=== PATIENT | male | born 1990 | race Caucasian/White ===

== ENCOUNTER 2021-06-26 14:04 | Emergency (ER) | payer BC, SELFPAY ==
--- NOTE | ~2021-06-26 | XR_ITS ---
EXAMINATION: XR shoulder RT min 2V DATE: 06/26/2021 14:21 INDICATION: Right upper arm pain. TECHNIQUE: 3 views of right shoulder were obtained. COMPARISON: None. FINDINGS: There is a transverse fracture of mid shaft of right humerus. The distal fracture fragment demonstrates 16 degrees posterior angulation. Joint spaces are normal. IMPRESSION: 1. Transverse fracture of midshaft of right humerus. Reviewed, dictated and finalized at location A. IREMENTS ENGINEER
--- NOTE | ~2021-06-26 | XR_ITS ---
EXAMINATION: XR humerus RT DATE: 06/26/2021 14:21 INDICATION: Right upper arm pain. TECHNIQUE: 2 views of right humerus on 3 radiographs were obtained. COMPARISON: None. FINDINGS: There is a transverse fracture of midshaft of right humerus. The distal fracture fragment d emonstrates 16 degrees posterior angulation. The glenohumeral joint is not well profiled. Acromioclav icular joint is normal. IMPRESSION: 1. Transverse fracture of mid shaft of right humerus. Reviewed, dictated and finalized at location A. ORY SUPERVISOR
[2021-06-26 14:00] VITALS: BP 126/87; PULSE 100; RESP 17; TEMP 36.4; O2SAT 99
--- NOTE | 2021-06-26 14:08 | PC.NURSE ---
pt asked if pain medication required, pt denied need multiple times. stated that he would, wait and ask for when needed.
--- NOTE | 2021-06-26 15:22 | ED.UPPEXIN ---
HPI - Extremity Injury (Upper) General Chief Complaint: Extremity Injury, Upper Stated Complaint: right arm injury Source: patient Mode of arrival: ambulatory Limitations: no limitations History of Present Illness HPI narrative: Patient was hiking, slipped on ice landed on the right upper extremity. Denies other injuries. Prior to arrival. Related Data Allergies Allergy/AdvReac Type Severity Reaction Status Date / Time No Known Allergies Allergy Verified 06/26/21 14:04 Review of Systems Review of Systems: CONSTITUTIONAL: Denies fever, chills, or sweats. EYES: Denies visual changes, redness, or discharge. ENT: Denies rhinorrhea, congestion, sore throat, or otalgia. CARDIOVASCULAR: Denies chest pain, palpitations, or edema. RESPIRATORY: Denies cough or dyspnea. GASTROINTESTINAL: Denies abdominal pain, nausea, vomiting, or diarrhea. GENITOURINARY: Denies dysuria or hematuria. SKIN: Denies rash or itching. MUSCULOSKELETAL: Denies back pain, joint pain, or myalgia. NEUROLOGIC: Denies headache, numbness, or weakness. PSYCHIATRIC: Denies anxiety or depression. [facility] Family History Family History Father Family history of cardiomyopathy Social History Social History Smoking status: Never smoker Alcohol intake: current Exam Narrative: General appearance: Well-developed, well-nourished Skin: Normal color Head: Normocephalic, nontraumatic Eyes: Clear conjunctiva ENT: Oropharynx normal, ears normal, nose normal Neck: Supple, nontender Chest and respiratory: Airway patent, no respiratory distress, no accessory muscle use Heart: Regular rate/rhythm Abdomen: Soft, nontender, no organomegaly, quiet bowel sounds Vascular: Normal peripheral pulses, normal capillary refill. Musculoskeletal: Right arm showed diffuse swelling, diffuse tenderness, slight deformity, neurovascularly intact Neurologic: Alert and oriented ?3, [employer] is normal as tested, no gross motor deficit Course Course Emergency Course: Stable Coaptation splint/sling were placed, patient is neurovascularly intact prior and after I personally supervised and checked placement of the splint, neurovascular function is intact after placement.. Consultations Consultation #1: DR OCHOA Patient can go home, splint, call office tomorrow for appointment Date: 06/26/21 Time: 15:31 Vital Signs Vital signs: Vital Signs Temperature 36.4 C 06/26/21 14:00 Pulse Rate 100 06/26/21 14:00 Respiratory Rate 17 06/26/21 14:00 Blood Pressure 126/87 06/26/21 14:00 Pulse Oximetry 99 06/26/21 14:00 Temperature 36.4 C 06/26/21 14:00 Pulse Rate 100 06/26/21 14:00 Respiratory Rate 17 06/26/21 14:00 Blood Pressure 126/87 06/26/21 14:00 Pulse Oximetry 99 06/26/21 14:00 MDM - Extremity Injury (Upper) Imaging Data Attestation: I personally reviewed and interpreted this imaging study as follows: My impression: Impressions Humerus X-Ray 06/26/21 14:26 IMPRESSION: 1. Transverse fracture of mid shaft of right humerus. Shoulder X-Ray 06/26/21 14:27 IMPRESSION: 1. Transverse fracture of midshaft of right humerus. Critical Care Time Critical Care Time Critical Care Time: Yes Total Critical Care Time: 30 Discharge Plan Discharge Clinical Impression: Fracture of humerus Qualifiers: Encounter type: subsequent encounter Humerus Location: shaft Fracture type: closed Fracture morphology: transverse Fracture alignment: nondisplaced Laterality: right Fracture healing: with nonunion Qualified Code(s): S42.324K - Nondisplaced transverse fracture of shaft
[2021-06-26] MEDS: HYDROcodone/acetaminophen (*CRX) 7.5-325 MG TABLET 1 TAB PO (15:26)
[2021-06-26] MEDS: ONDANSETRON HCL ODT 4 MG TABLET PO (15:26)
[2021-06-26] MEDS: IBUPROFEN 600 MG TABLET PO (15:26)
== END 2021-06-26 16:57 | disposition home or self-care (01) ==
PROVIDERS: Emergency Provider Emergency Medicine; PCP Internal Medicine
DX: S42.321A Displaced transverse fracture of shaft of humerus, right arm, initial encounter for closed fracture (principal); W00.0XXA Fall on same level due to ice and snow, initial encounter; Y93.01 Activity, walking, marching and hiking
CPT/HCPCS: 73030; 73060; 99284; A4565; A9270

== ENCOUNTER → 2023-06-11 14:29 | Outpatient (CLI) | payer BC, SELFPAY ==
--- NOTE | ~2023-06-11 | XR_ITS ---
XR chest 2V DATE: 06/11/2023 14:47 INDICATION: Epigastric pain TECHNIQUE: 2 views COMPARISON: None FINDINGS: Normal heart size. No hilar or mediastinal enlargement. No pulmonary infiltrate or consol idation, pulmonary vascular congestion or pleural effusion or pneumothorax. There are apparent bilateral cervical ribs. IMPRESSION: No significant cardiopulmonary abnormality Reviewed, dictated and finalized at location B. E CUTTER
== END ==
PROVIDERS: PCP Nurse Practitioner Family; Visit Provider Nurse Practitioner Family
DX: R10.13 Epigastric pain (principal)
CPT/HCPCS: 71046

== ENCOUNTER 2023-06-15 10:01 | Outpatient (CLI) | payer BC, SELFPAY ==
--- NOTE | ~2023-06-15 | XR_ITS ---
EXAMINATION: XR barium swallow DATE: 06/15/2023 10:38 INDICATION: Gastroesophageal reflux disease. TECHNIQUE: The patient drank thick barium, gas-producing crystals, and thin barium. Fluoroscopy of th e hypopharynx and esophagus was performed. Fluoroscopy exposure time was 0.5 minutes. The total numbe r of images was 267. The dose-area product was 0.6 Gy-cm^2. COMPARISON: None. FINDINGS: There is no mass or stricture of the esophagus. There is decreased primary and secondary es ophageal peristalsis. No abnormal tertiary waves. There is no hiatal hernia. There was one episode of witnessed gastroesophageal reflux. IMPRESSION: 1. Mild esophageal dysmotility. 2. Gastroesophageal reflux. Reviewed, dictated and finalized at location A. MAKER
== END 2023-06-15 10:02 | disposition home or self-care (01) ==
PROVIDERS: PCP Family Medicine; Visit Provider Nurse Practitioner Family
DX: K21.9 Gastro-esophageal reflux disease without esophagitis (principal)
CPT/HCPCS: 74220

== ENCOUNTER 2023-09-02 11:58 | Emergency (ER) | payer BC, SELFPAY ==
[2023-09-02] VITALS (33 sets, daily range): BP systolic 110–133; BP diastolic 61–81; PULSE 78–121; RESP 15–25; TEMP 36.7–36.8; O2SAT 90–100
--- NOTE | 2023-09-02 12:15 | ECG_ITS ---
SEE SCANNED COPY FOR CONFIRMED REPORT MTDD
--- NOTE | 2023-09-02 12:36 | PC.NURSE ---
[place] Poison Control contacted d/t patient overdose on 700mg trazodone at approx 10-1030 this am. Izabela, pharmacist provided following information: -peak approx 1-2 hours post ingestion -provide supportive care as needed, noted were: possible bradycardia, hypotension, increased drowsiness -recommends tox. labs incase any of coingestion -EKG d/t possibility of prolonged QT
[2023-09-02 12:38] LABS: Basophils Percent Auto 0.2 % (0.2-1.2); Eosinophils Percent Auto 0.4 % (0-4.4); Hematocrit 44.1 % (42.0-52.0); Hemoglobin 15.1 g/dL (14.0-18.0); Immature Granulocyte Absolute 0.05 K/mm3 (0.00-0.031); Immature Granulocyte Percent A 0.5 % (0-0.5); Lymphocytes Absolute Auto 1.18 K/mm3 (0.9-3.2); Lymphocytes Percent Auto 12.3 % (18.3-44.2); Mean Corpuscular HGB Conc 34.2 g/dl (32-36); Mean Corpuscular Hemoglobin 31.6 pg (26-34); Mean Corpuscular Volume 92.3 fl (80-100); Mean Platelet Volume 10.3 fl (7.4-10.4); Monocytes Absolute Auto 0.7 K/mm3 (0.1-0.6); Monocytes Percent Auto 7.1 % (2.6-8.5); Neutrophils Absolute Auto 7.6 K/mm3 (1.3-6.7); Neutrophils Percent Auto 79.5 % (45.5-73.1); Platelet Count Result 173 k/mm3 (150-375); Red Blood Count 4.78 M/mm3 (4.6-6.20); Red Cell Distribution Width 12.7 % (11.5-14.5); White Blood Count 9.6 K/mm3 (4.5-10.0)
[2023-09-02 12:44] LABS: Appearance Urine Clear (Clear); Bilirubin Urine Negative (Negative); Blood Urine Negative (Negative); Color Urine Yellow (Yellow); Glucose Urine UA Negative (Negative); Ketones Urine Negative (Negative); Leukocyte Esterase Ur Negative LEU/UL (Negative); Nitrate Urine Negative (Negative); Protein Urine Negative (Negative); Specific Grav Ur 1.012 (1.001-1.035); Urobilinogen Urine 0.2 mg/dL (<2.0); pH Urine 5.5 (5.0-9.0)
[2023-09-02 12:54] LABS: Add Urine Microscopic? NO
[2023-09-02 13:01] LABS: Acetaminophen < 10 ug/mL (10-30); Ethanol < 10 mg/dL (<10); Salicylate < 1.0 mg/dL (2-20)
[2023-09-02 13:02] LABS: Alanine Aminotransferase 88 U/L (6-50); Albumin Level 4.1 g/dL (3.5-5.1); Alkaline Phosphatase 81 U/L (38-126); Anion Gap 4 mmol/L (4-12); Aspartate Amino Transferase 55 U/L (17-59); Bilirubin,Total 0.3 mg/dL (0.2-1.3); Blood Urea Nitrogen 26 mg/dL (9-20); Calcium 9.1 mg/dL (8.4-10.2); Carbon Dioxide 29 mmol/L (22-30); Chloride 105 mmol/L (98-107); Estimated CRCL calculation 179 ml/min; Estimated Glomerular Filt Rate > 60; Glucose 111 mg/dL (65-110); Potassium 3.8 mmol/L (3.4-5.0); Sodium 138 mmol/L (137-145)
[2023-09-02 13:11] LABS: Amphetamine Screen Urine Negative (Negative); Barbiturate Screen Urine Negative (Negative); Benzodiazepines Screen Urine Negative (Negative); Cannabinoid Screen Urine Negative (Negative); Cocaine Screen Urine Negative (Negative); Methadone Screen Urine Negative (Negative); Opiate Screen Urine Negative (Negative); Phencyclidine Screen Urine Negative (Negative)
[2023-09-02 13:13] LABS: SARS-CoV-2 RNA PCR Negative (Negative)
--- NOTE | 2023-09-02 13:40 | ED.OVERDOSE ---
HPI - Overdose General Chief Complaint: Overdose <Travis Pryor MD - Last Filed: 09/02/23 18:51> Stated Complaint: overdose on trazadone and Luvox <Travis Pryor MD - Last Filed: 09/02/23 18:51> Time Seen by Provider: 09/02/23 12:29 <Travis Pryor MD - Last Filed: 09/02/23 18:51> History of Present Illness HPI Narrative: This a 33-year-old male, with history of OCD and insomnia who presents to the emergency after intentional. The patient states today around 10:00 o'clock, he took 100 mg of trazodone and his 50 mg dose of fluoxetine in attempt to kill himself. He states he has been under increased stress recently. He is not entirely forthcoming, though his brother notes he recently had a in the family. The patient denies other medication use or means of suicide attempt. He denies previous attempts. The patient denies homicidal ideations or hallucinations. He has no other complaints at this time. <Travis Pryor MD - Last Filed: 09/02/23 18:51> Related Data Home Medications: Home Medications Medication Instructions Recorded Confirmed melatonin 5 mg capsule 10 mg PO 08/09/23 08/09/23 <Travis Pryor MD - Last Filed: 09/02/23 18:51> Allergies/Adverse Reactions: Allergies Allergy/AdvReac Type Severity Reaction Status Date / Time No Known Allergies Allergy Verified 09/02/23 12:39 <Travis Pryor MD - Last Filed: 09/02/23 18:51> Review of Systems Review of Systems: CONSTITUTIONAL: Denies fever, chills, or sweats. EYES: Denies visual changes, redness, or discharge. ENT: Denies rhinorrhea, congestion, sore throat, or otalgia. CARDIOVASCULAR: Denies chest pain, palpitations, or edema. RESPIRATORY: Denies cough or dyspnea. GASTROINTESTINAL: Denies abdominal pain, nausea, vomiting, or diarrhea. GENITOURINARY: Denies dysuria or hematuria. SKIN: Denies rash or itching. MUSCULOSKELETAL: Denies back pain, joint pain, or myalgia. NEUROLOGIC: Denies headache, numbness, dizziness, or weakness. PSYCHIATRIC: Suicidal ideations, denies homicidal ideations or hallucinations <Travis Pryor MD - Last Filed: 09/02/23 18:51> PMFSH Past Medical History Medical History: Medical History (Updated 09/02/23 @ 17:51 by Travis Pryor MD) Atypical chest pain Depression GERD (gastroesophageal reflux disease) OCD (obsessive compulsive disorder) <Travis Pryor MD - Last Filed: 09/02/23 18:51> Surgical History Surgical History: Surgical History (Updated 09/02/23 @ 17:43 by Travis Pryor MD) No significant past surgical history <Travis Pryor MD - Last Filed: 09/02/23 18:51> Family History Family History: Family History Father Family history of cardiomyopathy <Travis Pryor MD - Last Filed: 09/02/23 18:51> Social History Social History: Social History Smoking status: Never smoker Alcohol intake: current Alcohol use details: social Substance use: never Substance use type: does not use Lack of Transportation: No Lack of Food: Never True Current Housing: I Have Housing Concerned About Future Housing: No Difficulty Paying Gas/Electric Bills: No Difficulty Paying for Meds: No Currently Unemployed: No Education: Bachelor's Degree Difficulty w/ Childcare or Family Care: No <Travis Pryor MD - Last Filed: 09/02/23 18:51> Exam Narrative: GENERAL: Well-developed, well-nourished, and in no acute distress. HEAD: Normocephalic, atraumatic. EYES: PERRLA and EOMI. CHEST: Clear to auscultation. No respiratory distress. No wheezes rales or rhonchi HEART: Regular rate and rhythm. No murmur heard. Normal peripheral pulses. ABDOMEN: Soft, nontender, nondistended, normal active bowel sounds. EXTREMITIES: Normal range of motion. No edema. SKIN: Warm, dry, no rash
[2023-09-02 15:19] LABS: Glucose Point of Care 108 mg/dl (65-105)
[2023-09-02] MEDS: LACTATED RINGERS 2,000 ML 999 ML IV CONT (15:31)
--- NOTE | 2023-09-02 16:34 | PC.NURSE ---
Called [place] poison control, to update on pt condition, spoke with [facility] pharmacist no further actions needed and the case is now closed.
--- NOTE | 2023-09-02 16:39 | PC.NURSE ---
Called [facility] for pt evaluation, someone will be here in about 60-90 min.
--- NOTE | 2023-09-02 18:44 | PC.NURSE ---
[facility] poison control case # [id number]
--- NOTE | 2023-09-02 19:22 | PC.NURSE ---
this rn assumed care of patient. this rn took patient report from KATERINA Hebert.
[2023-09-02] MEDS: PANTOPRAZOLE 40 MG TABLET PO (20:14)
== END 2023-09-02 21:56 ==
PROVIDERS: Emergency Medicine; Preventive Medicine Aerospace Medicine; Emergency Provider Emergency Medicine; PCP Family Medicine
DX: T43.212A Poisoning by selective serotonin and norepinephrine reuptake inhibitors, intentional self-harm, initial encounter (principal); T43.222A Poisoning by selective serotonin reuptake inhibitors, intentional self-harm, initial encounter; F32.A Depression, unspecified; Z11.52 Encounter for screening for COVID-19; K21.9 Gastro-esophageal reflux disease without esophagitis; F42.9 Obsessive-compulsive disorder, unspecified
CPT/HCPCS: 36415; 80053; 80307; 81003; 82948; 84443; 85025; 87635; 93005; 96360; 96361; 99285; A9270; J7120